=== PATIENT | female | born 1975 | race Caucasian/White ===

== ENCOUNTER → 2016-02-12 | Outpatient (CLI) | payer BC ==
--- NOTE | 2016-02-15 07:53 | USB ---
Reason for exam: additional evaluation requested from abnormal screening. History: Patient has history of other cancer at age 22. Retro-pectoral silicone gel implants in both breasts, 2011. Breast lifts of both breasts, 2011. Physical Findings: Breast exam preformed at baseline screening. US Breast Workup Limited RT Right breast ultrasound demonstrates a 6 x 5 x 4mm oval, cystic lesion at 9 o'clock. These results were verbally communicated with the patient and result sheet given to the patient on 02/12/16. ASSESSMENT: Benign, BI-RAD 2 RECOMMENDATION: Return to routine screening mammogram schedule for both breasts.
== END | disposition home or self-care (01) ==
LOC: RADUSWWP 15:42
PROVIDERS: ATTEND Family Medicine
DX: R92.8 Other abnormal and inconclusive findings on diagnostic imaging of breast (principal)

== ENCOUNTER → 2016-07-16 | Outpatient (CLI) | payer BC ==
[2016-07-16 08:26] LABS: Basophils # (A) 0.1 k/uL (0-0.2); Basophils % (A) 1 %; CH 30.1; CHCM 34.2; Eosinophils # (A) 0.2 k/uL (0-0.7); Eosinophils % (A) 3 %; HCT 41.2 % (34.0-46.0); HDW 2.36; HGB 14.1 gm/dL (11.4-16.0); Luc # (Auto) 0.26; Luc % (Auto) 3; Lymphocytes # (A) 1.9 k/uL (1.0-4.8); Lymphocytes % (A) 22 %; MCH 30.3 pg (25.0-35.0); MCHC 34.3 g/dL (31.0-37.0); MCV 88.4 fL (80.0-100.0); Mean Platelet Volume 8.3; Monocytes # (A) 0.5 k/uL (0-1.0); Monocytes % (A) 6 %; Neutrophils # (A) 5.7 k/uL (1.3-7.7); Neutrophils % (A) 66 %; RBC 4.67 m/uL (3.80-5.40); RDW 12.3 % (11.5-15.5); WBC 8.7 k/uL (3.8-10.6); WBC (Perox) 9.07
[2016-07-16 08:40] LABS: ALT 34 U/L (9-52); AST 24 U/L (14-36); Alkaline Phosphatase 77 U/L (38-126); Anion Gap 8 mmol/L; Blood Urea Nitrogen 21 mg/dL (7-17); Calcium 9.4 mg/dL (8.4-10.2); Carbon Dioxide 28 mmol/L (22-30); Chloride 105 mmol/L (98-107); Cholesterol 202 mg/dL (<200); Glucose 103 mg/dL (74-99); HDL Cholesterol 76 mg/dL (40-60); Non-African American GFR(MDRD) >60 (>60 ml/min/1.73 sqM); Potassium 5.2 mmol/L (3.5-5.1); Sodium 141 mmol/L (137-145); Total Bilirubin 0.5 mg/dL (0.2-1.3); Total Protein 6.9 g/dL (6.3-8.2); Triglycerides 79 mg/dL (<150)
== END | disposition home or self-care (01) ==
LOC: LABWHC1 07:24
PROVIDERS: ATTEND Family Medicine
DX: Z01.419 Encounter for gynecological examination (general) (routine) without abnormal findings (principal); I10 Essential (primary) hypertension; Z13.6 Encounter for screening for cardiovascular disorders; Z13.29 Encounter for screening for other suspected endocrine disorder
CPT/HCPCS: 36415; 80053; 80061; 84443; 85025

== ENCOUNTER → 2020-09-11 | Outpatient (CLI) | payer OTHER ==
--- NOTE | 2020-09-15 08:33 | MM ---
Reason for exam: screening (asymptomatic). Last mammogram was performed 4 years and 8 months ago. History: Patient has history of other cancer at age 22. Retro-pectoral silicone gel implants in both breasts, 2011. Breast lifts of both breasts, 2011. Physical Findings: A clinical breast exam by your physician is recommended on an annual basis and results should be correlated with mammographic findings. MG Screening Mammo Implant/CAD Bilateral CC, MLO, and ID view(s) were taken. Prior study comparison: January 26, 2016, bilateral MG 3d screen mammo imp/cad. The breast tissue is heterogeneously dense. This may lower the sensitivity of mammography. Bilateral retropectoral silicone implants. New grouped calcifications upper inner quadrant central left breast, possible early vascular calcifications. Further magnification views recommended. ASSESSMENT: Incomplete: need additional imaging evaluation, BI-RAD 0 RECOMMENDATION: Special view mammogram of the left breast. (magnification) [facility] will attempt to contact patient to return for supplemental views.
== END | disposition home or self-care (01) ==
LOC: RADMAMWWP 13:36
PROVIDERS: ATTEND Surgery
DX: Z12.31 Encounter for screening mammogram for malignant neoplasm of breast (principal)
CPT/HCPCS: 77067

== ENCOUNTER → 2020-09-25 | Outpatient (CLI) | payer OTHER ==
--- NOTE | 2020-09-28 07:47 | MM ---
Reason for exam: additional evaluation requested from abnormal screening. Last mammogram was performed less than 1 month ago. History: Patient has history of other cancer at age 22. Retro-pectoral silicone gel implants in both breasts, 2010. Breast lifts of both breasts, 2010. Physical Findings: Nurse did not find any significant physical abnormalities on exam. MG Work Up Mamm w CAD LT CC and MLO view(s) were taken of the left breast. Prior study comparison: September 11, 2020, bilateral MG screening mammo implant/CAD. January 26, 2016, bilateral MG 3d screen mammo imp/cad. The breast tissue is heterogeneously dense. This may lower the sensitivity of mammography. Finding: There are punctate, round, diffuse and scattered calcifications in the anterior position of the left breast, some which layer. No suspicious cluster of microcalcifications on additional views clearly seen. These results were verbally communicated with the patient and result sheet given to the patient on 09/25/20. ASSESSMENT: Probably benign, BI-RAD 3 RECOMMENDATION: Follow-up diagnostic mammogram of the left breast in 6 months.
== END | disposition home or self-care (01) ==
LOC: RADMAMWWP 14:59
PROVIDERS: ATTEND Surgery
DX: R92.2 Inconclusive mammogram (principal)
CPT/HCPCS: 77065

== ENCOUNTER → 2021-03-01 | Outpatient (CLI) | payer OTHER ==
--- NOTE | 2021-03-02 08:06 | MM ---
Reason for exam: follow-up at short interval from prior study. Last mammogram was performed 5 months ago. History: Patient has history of other cancer at age 22. Retro-pectoral silicone gel implants in both breasts, 2010. Breast lifts of both breasts, 2010. Physical Findings: Nurse did not find any significant physical abnormalities on exam. MG 3D Diag Mammo Imp W/Cad LT CC, MLO, and ID view(s) were taken of the left breast. Prior study comparison: September 25, 2020, left breast MG work up mamm w CAD LT. September 11, 2020, bilateral MG screening mammo implant/CAD. The breast tissue is heterogeneously dense. This may lower the sensitivity of mammography. There is no discrete abnormality. Left subpectoral implant. These results were verbally communicated with the patient and result sheet given to the patient on 03/01/21. ASSESSMENT: Benign, BI-RAD 2 RECOMMENDATION: Return to routine screening mammogram schedule for both breasts. Back on schedule.
== END | disposition home or self-care (01) ==
LOC: RADMAMWWP 14:48
PROVIDERS: ATTEND Family Medicine
DX: R92.2 Inconclusive mammogram (principal)
CPT/HCPCS: 77061; 77065

== ENCOUNTER → 2021-08-31 | Outpatient (CLI) | payer OTHER | END | disposition home or self-care (01) | LOC: LABWHC1 10:21 | PROVIDERS: ATTEND Family Medicine | DX: Z13.29 Encounter for screening for other suspected endocrine disorder (principal); E83.52 Hypercalcemia | CPT/HCPCS: 36415; 82310; 83970 ==

== ENCOUNTER → 2022-03-07 | Outpatient (CLI) | payer OTHER ==
--- NOTE | 2022-03-08 08:32 | MM ---
Reason for Exam: Screening (asymptomatic). Last mammogram was performed 1 year(s) and 5 month(s) ago. Patient History: Menarche at age 12. First Full-Term at age 27. Patient has history of breast feeding. 2010, Bilateral Implants. Last menstrual period: 04/22/2021 Risk Values: Rakel 5 year model risk: 1.0%. NCI Lifetime model risk: 10.3%. Prior Study Comparison: 09/11/2020 Bilateral Screening Mammogram, [facility]. 09/25/2020 Left Diagnostic Mammogram, [facility]. 03/01/2021 Left Diagnostic Mammogram, [facility]. Tissue Density: There are scattered fibroglandular densities. Findings: Analyzed By CAD. There is no suspicious group of microcalcifications or new suspicious mass in either breast. Overall Assessment: Negative, BI-RAD 1 Management: Screening Mammogram of both breasts in 1 year. A clinical breast exam by your physician is recommended on an annual basis and results should be correlated with mammographic findings. [facility] will attempt to contact patient to return for supplemental views and ultrasound if indicated. Electronically signed and approved by: Tomas Hannon DO
== END | disposition home or self-care (01) ==
LOC: RADMAMWWP 07:52
PROVIDERS: ATTEND Family Medicine
DX: Z12.31 Encounter for screening mammogram for malignant neoplasm of breast (principal); Z98.82 Breast implant status
CPT/HCPCS: 77063; 77067

== ENCOUNTER → 2023-10-07 | Outpatient (CLI) | payer OTHER ==
--- NOTE | 2023-10-20 13:42 | BMR ---
EXAM DATE: 10/07/2023 EXAM DESCRIPTION: MRI-Breast Bilat (W/O Contrast) INDICATION: Assess breast augmentation, implants. COMPARISON: PRIOR MRIs: None available. Correlation to mammograms: 04/10/2023, 03/07/2022. Correlation to ultrasound: None available. CONTRAST: None, implant protocol TECHNIQUE: Multiplanar multisequence MR imaging of both breasts was performed with a dedicated breast coil without contrast per implant protocol. FINDINGS: General breast composition: The breast is heterogeneously dense RIGHT BREAST: The T2 weighted series shows no areas of abnormal signal intensity. Subpectoral right silicone implant with complex intracapsular rupture. No evidence of discrete extracapsular rupture. LEFT BREAST: The T2 weighted series shows no areas of abnormal signal intensity. Subpectoral left silicone implant with intracapsular rupture. No evidence of extracapsular rupture. LYMPH NODES: There is no evidence of internal mammary or axillary adenopathy. Intracapsular rupture IMPRESSION: RIGHT BREAST: Intracapsular rupture subpectoral silicone implant. LEFT BREAST: Intracapsular rupture subpectoral silicone implant. OVERALL ASSESSMENT -- BI-RADS 2: Benign MTDD
== END | disposition home or self-care (01) ==
LOC: RADMRIMAIN 08:59
PROVIDERS: ATTEND Family Medicine
DX: R92.323 Mammographic fibroglandular density, bilateral breasts (principal); Z98.82 Breast implant status
CPT/HCPCS: 77047

== ENCOUNTER → 2024-04-09 | Outpatient (CLI) | payer OTHER ==
--- NOTE | 2024-04-09 18:00 | MM ---
Reason for Exam: Screening (asymptomatic). Last screening mammogram was performed 12 month(s) ago. Patient History: Menarche at age 12. First Full-Term at age 27. Patient has history of breast feeding. 2010, Bilateral Implants. Last menstrual period: 03/14/2024 Risk Values: Rakel 5 year model risk: 1.0%. NCI Lifetime model risk: 10.0%. Prior Study Comparison: 03/01/2021 Left Diagnostic Mammogram, [facility]. 03/07/2022 Bilateral MG 3D screen mammo imp/cad., [facility]. 04/10/2023 Bilateral MG 3D screen mammo imp/cad., [facility]. Tissue Density: The breasts are heterogeneously dense, which may obscure small masses. Findings: Analyzed By CAD. Redemonstrated bilateral retropectoral silicone implants. Areas of asymmetric density are unchanged. There is no suspicious group of microcalcifications or new suspicious mass in either breast. Overall Assessment: Benign, BI-RAD 2 Management: Screening Mammogram of both breasts in 1 year. Patient should continue monthly self-breast exams. A clinical breast exam by your physician is recommended on an annual basis. This exam should not preclude additional follow-up of suspicious palpable abnormalities. Note on Rakel scores and lifetime risk: 1. A Rakel score greater than 3% is considered moderate risk. If this is the case, consider specialist referral to assess eligibility for a risk reducing agent. 2. If overall lifetime risk for the development of breast cancer is 20% or higher, the patient may qualify for future screening with alternating mammogram and breast MRI. [facility], , 04/09/2024 5:58 PM. Electronically signed and approved by: Coleman Andres M.D. Radiologist
== END | disposition home or self-care (01) ==
LOC: RADMAMWWP 11:15
PROVIDERS: ATTEND Family Medicine
DX: Z12.31 Encounter for screening mammogram for malignant neoplasm of breast (principal); R92.333 Mammographic heterogeneous density, bilateral breasts; Z98.82 Breast implant status
CPT/HCPCS: 77063; 77067